=== PATIENT | male | born 1930 | race Caucasian/White ===

== ENCOUNTER 2017-09-01 19:46 | Inpatient (IN) | payer MEDICARE, BC ==
[2017-09-01] MEDS ORDERED: NS 0.9% 1000 ML* 1,000 ML IV ONE ×2 (20:11→20:14)
--- NOTE | 2017-09-01 20:37 | RAD ---
Indication: Weakness. Single frontal view of the chest performed at 2020 hours was reviewed. No prior study is available for comparison. No mediastinal shift is noted. Heart is of normal size and configuration. Lung moraes appear clear. Patient is status post transsternal thoracotomy. IMPRESSION: NO ACTIVE CARDIOPULMONARY DISEASE IS NOTED.
[2017-09-01 21:08] LABS: Hematocrit 42 % (42-52); Hemoglobin 13.6 g/dl (14.0-18.0); Mean Corpuscular HGB Conc 33 g/dl (31-36); Mean Corpuscular Hemoglobin 29 pg (27-31); Mean Corpuscular Volume 89 fL (80-94); Mean Platelet Volume 12 um3 (7.4-10.4); Red Blood Count 4.68 10^6/ul (4.0-5.4); Red Cell Distribution Width 16 % (10.5-15); White Blood Count 18.1 10^3/ul (3.5-10.8)
[2017-09-01 21:17] LABS: Add Diff/Slide Review? Slide Review Added; Comments Flag Yes
[2017-09-01 21:24] LABS: Albumin 4.2 g/dL (3.2-5.2); Calcium 9.9 mg/dL (8.6-10.3); EGFR African American 12.7 (>60); EGFR Non-African American 9.9 (>60); Globulin 4.6 g/dL (2-4); Magnesium 3.7 mg/dL (1.9-2.7); Total Bilirubin 0.4 mg/dL (0.2-1.0); Total Protein 8.8 g/dL (6.4-8.9)
[2017-09-01 21:28] LABS: Potassium 5.2 mmol/L (3.5-5.0); Troponin I 0.14 ng/mL (<0.04)
[2017-09-01 21:58] LABS: TSH (Thyroid Stimulating Horm) 0.83 mcIU/mL (0.34-5.60)
[2017-09-01] MEDS ORDERED: Ondansetron INJ* 2 MG/ML VIAL IV PRN (22:20)
[2017-09-01] MEDS ORDERED: Acetaminophen TAB* 325 MG PO PRN (22:20)
[2017-09-01 22:22] LABS: BUN/Creatinine Ratio 36.1 (8-20)
[2017-09-01] MEDS ORDERED: NS 0.45% 1000 ML BAG* 1,000 ML IV SCH (23:00)
[2017-09-01 23:38] LABS: Urine Bacteria Absent (Absent); Urine Bilirubin Negative (Negative); Urine Glucose Negative (Negative); Urine Nitrite Negative (Negative)
[2017-09-01 23:58] LABS: Calcium 8.7 mg/dL (8.6-10.3); EGFR African American 14.1 (>60); EGFR Non-African American 10.9 (>60); Potassium 4.8 mmol/L (3.5-5.0)
--- NOTE | 2017-09-02 00:01 | ED ---
Rob Mario Tiffany, scribchanel for Kobe Espinoza on 09/01/17 at 2020 . Complex/Multi-Sys Presentation - HPI Summary HPI Summary: This patient is an 87 year old M AISHWARYA CMCCHANEL accompanied by daughter and son-in- law with a chief complaint of general illness since one month ago, worse since today. Symptoms aggravated by nothing. Symptoms alleviated by nothing. The daughter delivered the HPI. The patient was referred to the ED today from his PCP. She reports decreased appetite. She denies fever. - History Of Current Complaint Time Seen by Provider: 09/01/17 19:57 Hx Obtained From: Family/Docent Coordinator - Daughter Onset/Duration: Lasting Weeks - 4 weeks, Still Present, Worse Since - Today Aggravating Factor(s): Nothing Alleviating Factor(s): Nothing Associated Signs And Symptoms: Positive: Other - Decreased appetite; NEGATIVE: fever - Allergies/Home Medications Allergies/Adverse Reactions: Allergies Allergy/AdvReac Type Severity Reaction Status Date / Time No Known Allergies Allergy Verified 09/01/17 20:08 Home Medications: Home Medications Alfuzosin HCl [Alfuzosin HCl ER] 10 mg PO DAILY 09/01/17 [History Confirmed ] Aspirin [Aspirin 81 MG TAB] 81 mg PO DAILY 09/01/17 [History Confirmed 09/01/17] Metoprolol Tartrate TAB* [Lopressor TAB*] 12.5 mg PO DAILY 09/01/17 [History Confirmed 09/01/17] PMH/Surg Hx/FS Hx/Imm Hx Previously Healthy: No GI History: Reports: Other GI Disorders - Hx of UTI Neurological History: Reports: Hx Dementia - Surgical History Surgery Procedure, Year, and Place: Triple bypass in 1979 and 1997, appendectomy in 0, stent in 1989 Infectious Disease History: Yes - Measles, mumps, rubella Infectious Disease History: Denies: Traveled Outside the [place] in Last 30 Days - Family History Known Family History: Positive: Cardiac Disease - Father had heart valve replaced, Other - Mother had bipolar disorder, no cancer - Social History Lives: With Family - With daughter and son-in-law Alcohol Use: Daily Alcohol Amount: 1/2 drink per day Hx Substance Use: No Substance Use Type: Reports: None Hx Tobacco Use: Yes Smoking Status (MU): Former Smoker - Quit at 48 y/o, used to smoke 3 PPD Review of Systems Positive: Other - General illness. Negative: Fever Positive: Other - Decreased appetite All Other Systems Reviewed And Are Negative: Yes Physical Exam - Summary Physical Exam Summary: Appearance: Well appearing, no pain distress Skin: warm, dry, reflects adequate perfusion Head/face: normal Eyes: EOMI, MAU ENT: dry mucous membranes Neck: supple, non-tender Respiratory: CTA, breath sounds present Cardiovascular: RRR, pulses symmetrical Abdomen: non-tender, soft Bowel: present Musculoskeletal: normal, strength/ROM intact Neuro: alert, confused Triage Information Reviewed: Yes Vital Signs On Initial Exam: Initial Vitals Temp Pulse Resp BP Pulse Ox 97.2 F 68 22 89/56 95 09/01/17 19:53 09/01/17 19:53 09/01/17 19:53 09/01/17 19:53 09/01/17 19:53 Vital Signs Reviewed: Yes Diagnostics - Vital Signs Vital Signs Temp Pulse Resp BP Pulse Ox 09/01/17 19:53 97.2 F 68 22 89/56 95 - Laboratory Lab Results: Lab Results 09/01/17 09/01/17 09/01/17 Range/Units 20:50 20:50 20:50 WBC 18.1 H (3.5-10.8) 10^3/ul RBC 4.68 (4.0-5.4) 10^6/ul Hgb 13.6 L (14.0-18.0) g/dl Hct 42 (42-52) % MCV 89 (80-94) fL MCH 29 (27-31) pg MCHC 33 (31-36) g/dl RDW 16 H (10.5-15) % Plt Count 159 (150-450) 10^3/ul MPV 12 H (7.4-10.4) um3 Neut % (Auto) 89.7 H (38-83) % Lymph % (Auto) 4.3 L (25-47) % [place] % (Auto) 5.8 (1-9) % Eos % (Auto) 0 (0-6) % Baso % (Auto) 0.2 (0-2) % Absolute Neuts (auto) 16.3 H (1.5-7.7) 10^3/ul Absolute Lymphs (auto) 0.8 L (1.0-4.8) 10^3/ul Absolute Monos (auto) 1.0 H (0-0.8) 10^3/ul Absolute Eos (auto) 0 (0-0.6) 10^3/ul Absolute Basos (auto) 0 (0-0.2) 10^3/ul Absolute Nucleated RBC 0 10^3/ul Nucleated RBC % 0 INR (Anticoag Therapy) 1.20 H (0.77-1.02) APTT 27.6 (26.0-36.3) seconds Sodium 161 H* (133-145) mmol/L Potassium 5.2 H (3.5-5.0) mmol/L Chloride 119 H (101-111) mmol/L Carbon Dioxide 25 (22-32) mmol/L Anion Gap 17 H (2-11) mmol/L BUN 198 H (6-24) mg/dL Creatinine 5.48 H (0.67-1.17) mg/dL Est GFR ( Amer) 12.7 (>60) Est GFR (Non-Af Amer) 9.9 (>60) BUN/Creatinine Ratio 36.1 H (8-20) Glucose 132 H (70-100) mg/dL Lactic Acid (0.5-2.0) mmol/L Calcium 9.9 (8.6-10.3) mg/dL Magnesium 3.7 H (1.9-2.7) mg/dL Total Bilirubin 0.40 (0.2-1.0) mg/dL AST 18 (13-39) U/L ALT 20 (7-52) U/L Alkaline Phosphatase 93 (34-104) U/L Troponin I 0.14 H* (<0.04) ng/mL Total Protein 8.8 (6.4-8.9) g/dL Albumin 4.2 (3.2-5.2) g/dL Globulin 4.6 H (2-4) g/dL Albumin/Globulin Ratio 0.9 L (1-3) TSH 0.83 (0.34-5.60) mcIU/mL 09/01/17 Range/Units 20:50 WBC (3.5-10.8) 10^3/ul RBC (4.0-5.4) 10^6/ul Hgb (14.0-18.0) g/dl Hct (42-52) % MCV (80-94) fL MCH (27-31) pg MCHC (31-36) g/dl RDW (10.5-15) % Plt Count (150-450) 10^3/ul MPV (7.4-10.4) um3 Neut % (Auto) (38-83) % Lymph % (Auto) (25-47) % [place] % (Auto) (1-9) % Eos % (Auto) (0-6) % Baso % (Auto) (0-2) % Absolute Neuts (auto) (1.5-7.7) 10^3/ul Absolute Lymphs (auto) (1.0-4.8) 10^3/ul Absolute Monos (auto) (0-0.8) 10^3/ul Absolute Eos (auto) (0-0.6) 10^3/ul Absolute Basos (auto) (0-0.2) 10^3/ul Absolute Nucleated RBC 10^3/ul Nucleated RBC % INR (Anticoag Therapy) (0.77-1.02) APTT (26.0-36.3) seconds Sodium (133-145) mmol/L Potassium (3.5-5.0) mmol/L Chloride (101-111) mmol/L Carbon Dioxide (22-32) mmol/L Anion Gap (2-11) mmol/L BUN (6-24) mg/dL Creatinine (0.67-1.17) mg/dL Est GFR ( Amer) (>60) Est GFR (Non-Af Amer) (>60) BUN/Creatinine Ratio (8-20) Glucose (70-100) mg/dL Lactic Acid 1.5 (0.5-2.0) mmol/L Calcium (8.6-10.3) mg/dL Magnesium (1.9-2.7) mg/dL Total Bilirubin (0.2-1.0) mg/dL AST (13-39) U/L ALT (7-52) U/L Alkaline Phosphatase (34-104) U/L Troponin I (<0.04) ng/mL Total Protein (6.4-8.9) g/dL Albumin (3.2-5.2) g/dL Globulin (2-4) g/dL Albumin/Globulin Ratio (1-3) TSH (0.34-5.60) mcIU/mL Result Diagrams: 09/01/17 20:50 09/01/17 23:25 Lab Statement: Any lab studies that have been ordered have been reviewed, and results considered in the medical decision making process. - Radiology CXR Radiology Interpretation Completed By: Radiologist - NO ACTIVE CARDIOPULMONARY DISEASE IS NOTED. ED physician has reviewed this radiology report. - EKG 20:24 Cardiac Rate: NL EKG Rhythm: Sinus Rhythm - 93 BPM EKG Interpretation: No acute changes Complex Multi-Symp Course/Dx Course Of Treatment: This patient is an 87 year old M [facility] accompanied by daughter and son-in-law with a chief complaint of general illness since one month ago, worse since today. The patient was referred to the ED today from his PCP. An EKG reveals sinus rhythm and no acute changes. CXR reveals, per radiologist, NO ACTIVE CARDIOPULMONARY DISEASE IS NOTED. Bloodwork/UA obtained. Patient will be admitted to the hospitalist. The patient is agreeable with this plan. - Diagnoses Differential Diagnoses/HQI/PQRI: Metabolic Abnormality, Sepsis, Urinary Tract Infection, Other - renal failure/hypernatremia Provider Diagnoses: Hypernatremia, Renal failure, Dehydration, Positive troponin, Dementia, Failure to thrive Discharge - Discharge Plan Condition: Fair Disposition: ADMITT[facility] TO [facility] The documentation as recorded by the Rob murdock Tiffany accurately reflects the service I personally performed and the decisions made by Alexis hernandez Emmanuel.
[2017-09-02] MEDS: Meropenem 500MG PREMIX(*) 500 MG/50 ML BAG IV SCH ×2 (00:09→22:46)
[2017-09-02 00:23] LABS: Troponin I 0.11 ng/mL (<0.04)
[2017-09-02 01:00] LABS: BUN/Creatinine Ratio 37.8 (8-20)
[2017-09-02 03:07] LABS: Calcium 8.5 mg/dL (8.6-10.3); EGFR African American 14.5 (>60); EGFR Non-African American 11.3 (>60); Potassium 4.6 mmol/L (3.5-5.0)
[2017-09-02 03:24] LABS: Troponin I 0.1 ng/mL (<0.04)
[2017-09-02 03:46] LABS: BUN/Creatinine Ratio 37.3 (8-20)
--- NOTE | 2017-09-02 04:44 | HP ---
CC: Dr. Clifton * HISTORY AND PHYSICAL: DATE OF ADMISSION: 09/01/17 PRIMARY CARE PROVIDER: Dr. Clifton. ATTENDING PHYSICIAN WHILE IN THE HOSPITAL: Dr. Rajiv Moseley * (report dictated by Karsten Blank NP). CHIEF COMPLAINT: 1. Increasing confusion. 2. Weakness. HISTORY OF PRESENT ILLNESS: I would like to preface the report by saying the patient has had significant dementia and has had some delirium and is really essentially nonverbal. He is really unable to contribute to the H and P. Family says that the last 2 to 3 days he has been nonverbal, has not been eating or drinking over the last week and really from Thanksgiving of this year he stopped taking his medications. He refused to take them. He has severe dementia. He was relocated up here with his daughter couple of months ago because he could no longer be at assisted living because he was found wandering at night naked in the parking lot there. The patient does carry again a history of BPH, hypertension, dementia, tremors, history of SC, and CAD. The daughter has noticed that he has not been eating and drinking, so she was trying to get established with PCP, which she finally got Dr. Clifton to see the patient through the [place]. They checked labs and they noticed that his BUN and creatinine and his sodium were significantly elevated, so they were concerned and they brought the patient in per the recommendations of Dr. Clifton. There has been no reports of fevers, chills, nausea, vomiting. No reports of shortness of breath or URI symptoms that have been reported by the family that have been observed or anything. When he got here to the ED, it was noted that his sodium was 161, his creatinine was 5. He had elevated white count and he had several lab abnormalities, so we were asked to evaluate for admission. PAST MEDICAL HISTORY: Significant for: 1. Dementia. 2. Hypertension. 3. BPH. 4. Tremors. 5. SC in the past. 6. CAD. PAST SURGICAL HISTORY: He has had CABG x2. He has had a cardiac catheterization with stent and he has had an appendectomy. HOME MEDICATIONS: According to the list provided: 1. Lopressor 12.5 mg daily. 2. Aspirin 81 mg daily. 3. Alfuzosin 10 mg p.o. daily. FAMILY HISTORY: The daughter says both his parents of old age. SOCIAL HISTORY: He is a former smoker. He does not drink alcohol. Surrogate decision maker is his daughter. REVIEW OF SYSTEMS: Unable to be obtained from the patient because he is nonverbal. PHYSICAL EXAMINATION GENERAL: At this time, Mr. Lucero is an 87-year-old male patient. He appears to be malnourished. He is sitting in the ED stretcher. He does not appear to be in acute distress. VITAL SIGNS: Blood pressure 89/56, pulse 92, respirations 22, O2 sat 95%, temperature 97.2. HEENT: Head: Atraumatic. Eyes: Sclerae are anicteric. Pupils are reactive to light. Throat: Oral mucosa appears to be moist. No oropharyngeal erythema. NECK: Supple. LUNGS: Clear to auscultation bilaterally. No wheezes, rales, or rhonchi. HEART: Sounds S1, S2. Regular rate and rhythm. No murmurs, rubs, or gallops. ABDOMEN: Soft, flat. There was tenderness in the suprapubic area. No CVA tenderness. EXTREMITIES: Pulses were 2+ throughout. He does move all 4 extremities. NEUROLOGIC: He is awake. He will not follow commands. He is nonverbal. He does not appear to be oriented to self, place, or time. He has no obvious gross focal deficits. SKIN: Intact. DIAGNOSTIC STUDIES/LAB DATA: WBC of 18.1, RBC of 4.68, his hemoglobin was 13.6 , hematocrit 42, his platelet count was 159. His INR was 1.20, his PTT was 27.6. His sodium was 161, his potassium was 5.2, chloride of 119, bicarb 25, BUN pending, his creatinine was 5.48, glucose 132, lactate 1.5, calcium 9.9, mag 3.7. Total bili 0.4, AST 18, ALT 20, alk phos 93. Troponin 0.14. Albumin of 4.2. His TSH was 0.83. He had a chest x-ray obtained today, which revealed no active cardiopulmonary disease. He had an EKG obtained today, showed a sinus rhythm rate of 93. No ST elevations or T-wave inversions. Old medical records were reviewed. ASSESSMENT AND PLAN: Mr. Lucero is an 87-year-old male patient with severe dementia, coming into the ED today with multiple lab abnormalities. He will be admitted under inpatient status for: 1. Hypernatremia. I suspect this is probably from dehydration. He has not eaten in the last week or drunk anything. My plan would be to go ahead and I did touch base with Dr. Chavez. He is obviously free water deficit, but he also does appear to be intravascularly depleted too. At this point, we are going to give him 2 L of normal saline upfront and LR at 200 an hour for 2 L, then half normal at 200 an hour. We will check BMPs every [address] him in the ICU and follow closely. 2. Acute renal failure. I do not have a previous creatinine, but I suspect this is pretty acute. We will get a FENa, get a CT of the abdomen and pelvis and make sure there is no hydronephrosis or obstructive uropathy. In addition to this, we will also get a urinalysis. While we expect this is probably all prerenal and the component of acute tubular necrosis, but we will hydrate him aggressively tonight to try to salvage the kidneys. 3. Leukocytosis. He certainly does have underlying infection somewhere, I am concerned for the urine, he did have ESBL in the past. We are getting the culture with Nicole now and I am going to go ahead and give him 1 dose of meropenem because of the ESBL in the past. We can continue to follow this. We will get blood cultures and check a flu swab as well. 4. Indeterminate troponin. This is probably demand ischemia from the severe dehydration. He is little hypotensive. We will trend these and we will follow. 5. Hypertension. We are holding his metoprolol. 6. Benign prostatic hypertrophy. We will continue his meds as prescribed and Rivera is being placed. 7. Dementia with acute delirium. Again, this is probably secondary to his severe metabolic derangements. We will try to correct these and we will reevaluate. 8. History of coronary artery disease. Continue with his aspirin therapy. 9. History of tremor. Supportive care. 10. DVT prophylaxis: We will place on heparin subcu. 11. Code status: He is a DNR. 12. Prognosis is poor, but the family did state that they would like to try to hydrate him for the next 2 to 3 days and see if he does turn around. If he does not, they will be interested in hospice. They have a MOLST with DNR/DNI. They are interested in pursuing hospice measures and hospice care if he qualifies. I did put a consult in. 13. Fluids, electrolytes, nutrition: He can have a regular diet. TIME SPENT: Time spent on admission was 60 minutes, greater than half the time was spent [id number] with the patient obtaining my history and physical, other half time was spent going over the plan of care with the patient and implementing plan of care. I did discuss the plan of care with my attending, Dr. Moseley, he is in agreement. KARSTEN BLANK, COMPUTER REPAIR TECHNICIAN [id number]/CPS #: [id number] ELVIRA
[2017-09-02] MEDS: Heparin VIAL(*) 5000 UNITS/ML VIAL (FIVE THOUSAND) SUBCUT SCH ×3 (06:47→22:46)
[2017-09-02 07:00] LABS: Hematocrit 32 % (42-52); Hemoglobin 10.4 g/dl (14.0-18.0); Mean Corpuscular HGB Conc 33 g/dl (31-36); Mean Corpuscular Hemoglobin 29 pg (27-31); Mean Corpuscular Volume 88 fL (80-94); Mean Platelet Volume 12 um3 (7.4-10.4); Red Blood Count 3.62 10^6/ul (4.0-5.4); Red Cell Distribution Width 16 % (10.5-15); White Blood Count 20.1 10^3/ul (3.5-10.8)
[2017-09-02 07:05] LABS: Comments Flag Yes
[2017-09-02 07:06] LABS: Add Diff/Slide Review? Slide Review Added
[2017-09-02 07:20] LABS: Calcium 8.6 mg/dL (8.6-10.3); EGFR African American 15.6 (>60); EGFR Non-African American 12.1 (>60); Potassium 4.5 mmol/L (3.5-5.0)
[2017-09-02 07:50] LABS: BUN/Creatinine Ratio 37.7 (8-20)
[2017-09-02] MEDS: NS 0.45% 1000 ML BAG* 1,000 ML IV SCH ×2 (08:05→13:07)
--- NOTE | 2017-09-02 08:11 | PN ---
Subjective Date of Service: 09/02/17 Interval History: Patient admitted last evening with dehydration, hypernatremia. He is able to answer a few questions this morning. Denies pain. Says "thank you." Family History: Unchanged from Admission Social History: Unchanged from Admission Past Medical History: Unchanged from Admission Objective Active Medications: Acetaminophen (Tylenol Tab*) 650 mg PO Q4H PRN PRN Reason: FEVER/PAIN Aspirin (Aspirin Ec Low Dose*) 81 mg PO DAILY [facility] Heparin Sodium (Porcine) (Heparin Vial(*)) 5,000 units SUBCUT Q8HR [facility] Last Admin: 09/02/17 06:47 Dose: 5,000 units Meropenem (Merrem 500mg Premix(*)) 500 mg in 50 mls @ 100 mls/hr IV Q24H [facility] Last Admin: 09/02/17 00:09 Dose: 100 mls/hr Lactated Ringer's (Lactated Ringers 1000 Ml Bag*) 1,000 mls @ 200 mls/hr IV Q5H [facility] Stop: 09/02/17 08:59 Last Admin: 09/02/17 05:32 Dose: 200 mls/hr Sodium Chloride (Ns 0.45% 1000 Ml Bag*) 1,000 mls @ 200 mls/hr IV Q5H [facility] Stop: 09/02/17 18:59 Last Admin: 09/02/17 08:05 Dose: 200 mls/hr Ondansetron HCl (Zofran Inj*) 4 mg IV Q6H PRN PRN Reason: NAUSEA Vital Signs - 8 hr 09/02/17 09/02/17 09/02/17 06:30 06:45 07:00 Temperature Pulse Rate 78 76 76 Respiratory 29 18 12 Rate Blood Pressure 103/57 101/55 104/50 (mmHg) O2 Sat by Pulse 99 97 100 Oximetry 09/02/17 09/02/17 09/02/17 07:01 07:17 07:31 Temperature Pulse Rate 71 72 78 Respiratory 8 21 19 Rate Blood Pressure 107/54 112/55 (mmHg) O2 Sat by Pulse 99 100 98 Oximetry 09/02/17 07:45 Temperature Pulse Rate 79 Respiratory 30 Rate Blood Pressure 104/51 (mmHg) O2 Sat by Pulse 97 Oximetry Oxygen Devices in Use Now: Nasal Cannula Appearance: sleeping, arouses to light touch, no distress Eyes: No Scleral Icterus Ears/Nose/Mouth/Throat: Clear Oropharnyx Neck: No Thyroid Enlargement, Masses Respiratory: Clear to Auscultation Cardiovascular: NL Sounds; No Murmurs; No JVD, RRR Abdominal: NL Sounds; No Tenderness; No Distention, No Hepatosplenomegaly Neurological: - - answers questions w/ vague answers Lines/Tubes/Other Access: Clean, Dry and Intact Peripheral IV Result Diagrams: 09/02/17 06:50 09/02/17 06:50 Additional Lab and Data: Laboratory Tests 09/01/17 09/01/17 09/01/17 20:50 20:50 22:50 Lactic Acid 1.5 Troponin I 0.14 H* Ur Random Creatinine 219.26 Ur Random Sodium 31 09/01/17 09/02/17 23:25 02:43 Lactic Acid Troponin I 0.11 H* 0.10 H* Ur Random Creatinine Ur Random Sodium Microbiology and Other Data: Microbiology 09/02/17 00:55 Nasal Screen MRSA (PCR)(JESSICA) - Final Nasal Mrsa Negative 09/01/17 23:25 Influenza Types A,B Antigen (JESSICA) - Final Nasal Specimen received for Influenza A/B Molecular testing Diagnostic Imaging: CT abdo/pelv complete, report pending Assess/Plan/Problems-Billing Assessment: 87 yo man w/ poor PO intake for 3-4 days, admitted w/ acute renal failure and severe hypernatremia. - Patient Problems (1) Hypernatremia Current Visit: Yes Status: Acute Priority: High Code(s): E87.0 - HYPEROSMOLALITY AND HYPERNATREMIA SNOMED Code(s): 02588888 Comment: -hypernatremia not responding to isotonic rehydration -will switch to 1/2 NS and monitor serum sodium closely (2) Acute kidney injury Current Visit: Yes Status: Acute Priority: Medium Code(s): N17.9 - ACUTE KIDNEY FAILURE, UNSPECIFIED SNOMED Code(s): 89202480 Comment: -creatinine has improved w/ 2.5 liters crystalloids overnight -CT abdo/pelv will demonstrate whether there is post-renal obstruction -suspect element of ATN -continue IV rehydration, 1/2 normal saline. (3) DVT prophylaxis Current Visit: Yes Status: Acute Priority: Low Code(s): UBE9375 - SNOMED Code(s): 204388246 Comment: - SCDs (4) Elevated troponin level Current Visit: Yes Status: Acute Priority: Medium Code(s): R74.8 - ABNORMAL LEVELS OF OTHER SERUM ENZYMES SNOMED Code(s): 342086898 Comment: -troponin is trending down, likely elevated by acute illness -can safely leave ICU and be followed on medical floor. Status and Disposition: continued inpatient stay due to severe hypernatremia
--- NOTE | 2017-09-02 08:58 | RAD ---
Indication: Pelvic pain, acute renal failure. CT of the abdomen and pelvis was performed without IV contrast. Coronal and sagittal reconstructed images were obtained. Lung bases demonstrate no pleural fluid, nodules or masses. There is suggestion of early infiltrate in the left base which may represent atelectasis or pneumonia. Heart is normal size without evidence pericardial effusion. Liver is normal in size. No focal lesions or intrahepatic ductal dilatation or gallbladder demonstrates calcified gallstones. No pericholecystic fluid or wall thickening is identified. The pancreas demonstrates no mass or duct dictation. The spleen is normal in size. No adrenal masses are noted. The kidneys demonstrates no hydronephrosis. There is aneurysmal dilatation of the inferior abdominal aorta measuring 4.5 x 5.4 cm. Common iliac arteries are unremarkable No dilated loops of bowel are noted. The colon is filled with stool. There is a Rivera catheter is distended urinary bladder and the bladder is filled with air. IMPRESSION: Abdominal aortic aneurysm as described above. Patchy infiltrate in the left base with no pleural fluid.
[2017-09-02] MEDS: Aspirin EC Low Dose* 81 MG TAB.EC PO SCH (09:50)
[2017-09-02] MEDS ORDERED: NS 0.9% 500 ML* 500 ML IV ONE (13:20)
[2017-09-02 13:56] LABS: Calcium 8.4 mg/dL (8.6-10.3); EGFR African American 17.8 (>60); EGFR Non-African American 13.8 (>60); Magnesium 2.8 mg/dL (1.9-2.7); Potassium 4.5 mmol/L (3.5-5.0)
[2017-09-02 14:20] LABS: BUN/Creatinine Ratio 41.7 (8-20)
[2017-09-02 16:06] LABS: EGFR African American 19.2 (>60); EGFR Non-African American 14.9 (>60); Potassium 4.4 mmol/L (3.5-5.0)
[2017-09-02 16:47] LABS: BUN/Creatinine Ratio 41.9 (8-20)
--- NOTE | 2017-09-02 17:04 | RAD ---
Indication: Acute renal failure. Real-time sonography of the kidneys was performed. The right kidney measures 10.5 x 4.7 x 4.7 cm. The left kidney measures 10.1 x 4.5 x 4.3 cm. No hydronephrosis is noted in either kidney. IMPRESSION: Unremarkable renal ultrasound.
[2017-09-02] MEDS: Morphine INJ* 2 MG/ML 1 ML SYRINGE (TWO MG - NEW SYRINGE VERSION) IV PRN ×2 (17:43→22:59)
[2017-09-02 19:16] LABS: Calcium 8.1 mg/dL (8.6-10.3); EGFR African American 21.3 (>60); EGFR Non-African American 16.6 (>60); Potassium 4.2 mmol/L (3.5-5.0)
[2017-09-02] MEDS: D5W 1/2 NS 1000 ML BAG* 1,000 ML IV SCH (19:26)
[2017-09-02 22:57] LABS: Calcium 7.9 mg/dL (8.6-10.3); EGFR African American 21.3 (>60); EGFR Non-African American 16.6 (>60); Potassium 3.9 mmol/L (3.5-5.0)
[2017-09-03] MEDS: D5W 1/2 NS 1000 ML BAG* 1,000 ML IV SCH ×4 (01:23→22:22)
[2017-09-03 03:31] LABS: BUN/Creatinine Ratio 44.2 (8-20); Calcium 7.7 mg/dL (8.6-10.3); EGFR African American 26.1 (>60); EGFR Non-African American 20.3 (>60); Potassium 3.5 mmol/L (3.5-5.0)
[2017-09-03] MEDS: Heparin VIAL(*) 5000 UNITS/ML VIAL (FIVE THOUSAND) SUBCUT SCH ×2 (05:09→14:07)
[2017-09-03 05:49] LABS: BUN/Creatinine Ratio 39.3 (8-20); Calcium 7.8 mg/dL (8.6-10.3); EGFR African American 24.7 (>60); EGFR Non-African American 19.2 (>60); Magnesium 2.3 mg/dL (1.9-2.7); Potassium 3.6 mmol/L (3.5-5.0)
[2017-09-03] MEDS: Aspirin EC Low Dose* 81 MG TAB.EC PO SCH (08:17)
[2017-09-03] MEDS ORDERED: NS 0.9% 500 ML* 500 ML IV ONE (11:43)
--- NOTE | 2017-09-03 14:18 | PN ---
Subjective Date of Service: 09/03/17 Interval History: Patient able to answer some questions. Denies thirst, denies pain. Family History: Unchanged from Admission Social History: Unchanged from Admission Past Medical History: Unchanged from Admission Objective Active Medications: Acetaminophen (Tylenol Tab*) 650 mg PO Q4H PRN PRN Reason: FEVER/PAIN Aspirin (Aspirin Ec Low Dose*) 81 mg PO DAILY [facility] Last Admin: 09/03/17 08:17 Dose: 81 mg Dextrose/Sodium Chloride (D5w 1/2 Ns 1000 Ml Bag*) 1,000 mls @ 125 mls/hr IV PER RATE [facility] Morphine Sulfate (Morphine Inj (Syringe)*) 2 mg IV Q2H PRN PRN Reason: PAIN Last Admin: 09/02/17 22:59 Dose: 2 mg Ondansetron HCl (Zofran Inj*) 4 mg IV Q6H PRN PRN Reason: NAUSEA Vital Signs - 8 hr 09/03/17 07:35 Temperature 36.5 C Pulse Rate 68 Respiratory 18 Rate Blood Pressure 98/46 (mmHg) O2 Sat by Pulse 95 Oximetry Oxygen Devices in Use Now: None Appearance: somnolent, no distress Respiratory: Clear to Auscultation Cardiovascular: NL Sounds; No Murmurs; No JVD Lines/Tubes/Other Access: Clean, Dry and Intact Peripheral IV Result Diagrams: 09/02/17 06:50 09/03/17 05:05 Diagnostic Imaging: CT abdo/pelv: 4.5 x 5.5 cm AAA, basilar infiltrate Assess/Plan/Problems-Billing Assessment: 87 yo man w/ poor PO intake for 3-4 days, admitted w/ acute renal failure and severe hypernatremia. - Patient Problems (1) Hypernatremia Current Visit: Yes Status: Acute Priority: High Code(s): E87.0 - HYPEROSMOLALITY AND HYPERNATREMIA SNOMED Code(s): 00143842 Comment: -hypernatremia now responding to D51/2NS for both free water deficit and rehydration -sodium improving, will monitor serum sodium daily (2) Acute kidney injury Current Visit: Yes Status: Acute Priority: Medium Code(s): N17.9 - ACUTE KIDNEY FAILURE, UNSPECIFIED SNOMED Code(s): 29611578 Comment: - creatinine has improved w/ volume resucitation - renal U/S and CT show no obstruction (3) DVT prophylaxis Current Visit: Yes Status: Acute Priority: Low Code(s): ZMS0805 - SNOMED Code(s): 016190876 Comment: - not indicated w/ hospice plan (4) DNR (do not resuscitate) discussion Current Visit: Yes Status: Acute Priority: Medium Code(s): Z71.89 - OTHER SPECIFIED COUNSELING SNOMED Code(s): 469942393 Comment: -dicussed situation with daughter who is HCP -He has not been eating for a week, and there is no sign of improvement -She elected to pursue hospice consult tomorrow, keep him comfortable and hydrated for now Status and Disposition: Plan for discharge to hospice residence or SNF tomorrow, as daughter reports she and cannot care for him a home with this level of illness.
[2017-09-03] MEDS: Morphine INJ* 2 MG/ML 1 ML SYRINGE (TWO MG - NEW SYRINGE VERSION) IV PRN (19:49)
[2017-09-04 04:38] LABS: Hematocrit 24 % (42-52); Hemoglobin 8.2 g/dl (14.0-18.0); Mean Corpuscular HGB Conc 34 g/dl (31-36); Mean Corpuscular Hemoglobin 29 pg (27-31); Mean Corpuscular Volume 86 fL (80-94); Mean Platelet Volume 11 um3 (7.4-10.4); Red Blood Count 2.82 10^6/ul (4.0-5.4); Red Cell Distribution Width 15 % (10.5-15); White Blood Count 8.8 10^3/ul (3.5-10.8)
[2017-09-04 04:39] LABS: Add Diff/Slide Review? Slide Review Added; Comments Flag Yes
[2017-09-04 04:47] LABS: BUN/Creatinine Ratio 36.5 (8-20); Calcium 7.5 mg/dL (8.6-10.3); EGFR African American 36.6 (>60); EGFR Non-African American 28.5 (>60); Potassium 3.4 mmol/L (3.5-5.0)
[2017-09-04] MEDS: D5W 1/2 NS 1000 ML BAG* 1,000 ML IV SCH ×3 (06:14→22:21)
[2017-09-04] MEDS: Aspirin EC Low Dose* 81 MG TAB.EC PO SCH (07:41)
--- NOTE | 2017-09-04 10:05 | PN ---
Subjective Date of Service: 09/04/17 Interval History: Patient seen and examined at bedside. Patient reports continued lack of appetite. Denies pain or discomfort at this time. Family History: Unchanged from Admission Social History: Unchanged from Admission Past Medical History: Unchanged from Admission Objective Active Medications: Acetaminophen (Tylenol Tab*) 650 mg PO Q4H PRN Aspirin (Aspirin Ec Low Dose*) 81 mg PO DAILY JOSE LUIS Dextrose/Sodium Chloride (D5w 1/2 Ns 1000 Ml Bag*) 1,000 mls @ 125 mls/hr IV PER RATE JOSE LUIS Morphine Sulfate (Morphine Inj (Syringe)*) 2 mg IV Q2H PRN Ondansetron HCl (Zofran Inj*) 4 mg IV Q6H PRN Vital Signs Temp Pulse Resp BP Pulse Ox 98.3 F 75 14 101/48 96 09/04/17 07:30 09/04/17 07:30 09/04/17 08:37 09/04/17 07:30 09/04/17 07:30 Oxygen Devices in Use Now: None Appearance: laying up in bed, NAD Eyes: No Scleral Icterus, PERRLA Neck: NL Appearance and Movements; NL JVP Respiratory: Symmetrical Chest Expansion and Respiratory Effort, Clear to Auscultation Cardiovascular: NL Sounds; No Murmurs; No JVD Abdominal: NL Sounds; No Tenderness; No Distention Skin: No Rash or Ulcers Neurological: NL Muscle Strength and Tone, - - AO to self and place Lines/Tubes/Other Access: Clean, Dry and Intact Peripheral IV Nutrition: Taking PO's Result Diagrams: 09/04/17 04:11 09/04/17 04:11 Additional Lab and Data: . Microbiology and Other Data: . Diagnostic Imaging: . Assess/Plan/Problems-Billing 87 yo man w/ poor PO intake for 3-4 days, admitted w/ acute renal failure and severe hypernatremia. - Patient Problems (1) Hypernatremia Comment: Sodium improving with D5 1/2 NS. Slowly correcting free water deficit and dehydration. Continue to monitor serum sodium. (2) Acute kidney injury Comment: Cr continues to improve with volume resuscitation. No evidence of obstruction on Ct or renal ultrasound. (3) Elevated troponin level Comment: Trending down. Suspect secondary to demand ischemia. No further work- up indicated with plan for hospice. (4) DVT prophylaxis Comment: Not indicated with plan for hospice. (5) DNR (do not resuscitate) discussion Comment: Family has elected for hospice consult. No sign of improvement with PO intake. Status and Disposition: Inpatient for severe hyponatremia. Plan for discharge to hospice residence or SNF when bed available, as daughter reports she and cannot care for him a home with this level of illness.
--- NOTE | 2017-09-04 10:44 | CONSULT ---
Palliative / Hospice Consult Ordering Provider: Karsten Blank - Subjective Code Status: DNR Advance Directives Location: In Chart MOLST Part A Completed: Yes MOLST Part E Completed:: Yes HCP Completed: Yes - Daughter Anju Lucero - History or Present Illness History or Present Illness: This 87 year old man had been living in [place], [place] in assisted living until the end of this past summer, when he moved to live with his daughter here. Over the summer, he had been hospitalized 6 times for UTIs. He apparently , according to his daughter, had no dementia until this past summer, but has had a steep decline since onset. He is now minimally verbal, incontinent, and requires total care and a two person assist for transfers. He weighed 125 pounds at the end of April. After Thanksgiving he began refusing his meds, and stopped eating and drinking adequately. Four days ago, he refused to get out of bed, and labs from his PCP revealed severe dehydration with ARF (creatinine of 5 ) and hypernatremia (Na 161). He was admitted with a plan to r/o urosepsis and rehydrate, but he has not bounced back. He is still taking almost nothing p.o., and despite rehydration with improvement in his labs (BUN 29 and Creatinine 2.9) , he still has renal compromise with an eGFR under 30. His daughter requests no more intervention and wants hospice services and comfort measures only. Lab Values: Abnormal Lab Results 09/04/17 09/04/17 04:11 04:11 WBC 8.8 RBC 2.82 L Hgb 8.2 L Hct 24 L MCV 86 MCH 29 MCHC 34 RDW 15 Plt Count 75 L MPV 11 H Neut % (Auto) 73.3 Lymph % (Auto) 16.4 L [place] % (Auto) 9.3 H Eos % (Auto) 0.8 Baso % (Auto) 0.2 Absolute Neuts (auto) 6.5 Absolute Lymphs (auto) 1.4 Absolute Monos (auto) 0.8 Absolute Eos (auto) 0.1 Absolute Basos (auto) 0 Absolute Nucleated RBC 0 Nucleated RBC % 0 Hem Pathologist Commnt Sodium 149 H Potassium 3.4 L Chloride 120 H Carbon Dioxide 24 Anion Gap 5 BUN 80 H Creatinine 2.19 H Est GFR ( Amer) 36.6 Est GFR (Non-Af Amer) 28.5 BUN/Creatinine Ratio 36.5 H Glucose 121 H Calcium 7.5 L Laboratory Last Values WBC 8.8 10^3/ul (3.5-10.8) 09/04/17 04:11 RBC 2.82 10^6/ul (4.0-5.4) L 09/04/17 04:11 Hgb 8.2 g/dl (14.0-18.0) L 09/04/17 04:11 Hct 24 % (42-52) L 09/04/17 04:11 MCV 86 fL (80-94) 09/04/17 04:11 MCH 29 pg (27-31) 09/04/17 04:11 MCHC 34 g/dl (31-36) 09/04/17 04:11 RDW 15 % (10.5-15) 09/04/17 04:11 Plt Count 75 10^3/ul (150-450) L 09/04/17 04:11 MPV 11 um3 (7.4-10.4) H 09/04/17 04:11 Neut % (Auto) 73.3 % (38-83) 09/04/17 04:11 Lymph % (Auto) 16.4 % (25-47) L 09/04/17 04:11 [place] % (Auto) 9.3 % (1-9) H 09/04/17 04:11 Eos % (Auto) 0.8 % (0-6) 09/04/17 04:11 Baso % (Auto) 0.2 % (0-2) 09/04/17 04:11 Absolute Neuts (auto) 6.5 10^3/ul (1.5-7.7) 09/04/17 04:11 Absolute Lymphs (auto) 1.4 10^3/ul (1.0-4.8) 09/04/17 04:11 Absolute Monos (auto) 0.8 10^3/ul (0-0.8) 09/04/17 04:11 Absolute Eos (auto) 0.1 10^3/ul (0-0.6) 09/04/17 04:11 Absolute Basos (auto) 0 10^3/ul (0-0.2) 09/04/17 04:11 Absolute Nucleated RBC 0 10^3/ul 09/04/17 04:11 Nucleated RBC % 0 09/04/17 04:11 Hem Pathologist Commnt 09/04/17 04:11 INR (Anticoag Therapy) 1.20 (0.77-1.02) H 09/01/17 20:50 APTT 27.6 seconds (26.0-36.3) 09/01/17 20:50 Sodium 149 mmol/L (133-145) H 09/04/17 04:11 Potassium 3.4 mmol/L (3.5-5.0) L 09/04/17 04:11 Chloride 120 mmol/L (101-111) H 09/04/17 04:11 Carbon Dioxide 24 mmol/L (22-32) 09/04/17 04:11 Anion Gap 5 mmol/L (2-11) 09/04/17 04:11 BUN 80 mg/dL (6-24) H 09/04/17 04:11 Creatinine 2.19 mg/dL (0.67-1.17) H 09/04/17 04:11 Est GFR ( Amer) 36.6 (>60) 09/04/17 04:11 Est GFR (Non-Af Amer) 28.5 (>60) 09/04/17 04:11 BUN/Creatinine Ratio 36.5 (8-20) H 09/04/17 04:11 Glucose 121 mg/dL (70-100) H 09/04/17 04:11 Lactic Acid 1.5 mmol/L (0.5-2.0) 09/01/17 20:50 Calcium 7.5 mg/dL (8.6-10.3) L 09/04/17 04:11 Magnesium 2.3 mg/dL (1.9-2.7) 09/03/17 05:05 Total Bilirubin 0.40 mg/dL (0.2-1.0) 09/01/17 20:50 AST 18 U/L (13-39) 09/01/17 20:50 ALT 20 U/L (7-52) 09/01/17 20:50 Alkaline Phosphatase 93 U/L (34-104) 09/01/17 20:50 Troponin I 0.10 ng/mL (<0.04) H* 09/02/17 02:43 Total Protein 8.8 g/dL (6.4-8.9) 09/01/17 20:50 Albumin 4.2 g/dL (3.2-5.2) 09/01/17 20:50 Globulin 4.6 g/dL (2-4) H 09/01/17 20:50 Albumin/Globulin Ratio 0.9 (1-3) L 09/01/17 20:50 TSH 0.83 mcIU/mL (0.34-5.60) 09/01/17 20:50 Urine Color Renea 09/01/17 22:50 Urine Appearance Cloudy 09/01/17 22:50 Urine pH 5.0 (5-9) 09/01/17 22:50 Ur Specific [place] 1.018 (1.010-1.030) 09/01/17 22:50 Urine Protein Negative (Negative) 09/01/17 22:50 Urine Ketones Negative (Negative) 09/01/17 22:50 Urine Blood 1+ (Negative) H 09/01/17 22:50 Urine Nitrate Negative (Negative) 09/01/17 22:50 Urine Bilirubin Negative (Negative) 09/01/17 22:50 Urine Urobilinogen Negative (Negative) 09/01/17 22:50 Ur Leukocyte Esterase Negative (Negative) 09/01/17 22:50 Urine WBC (Auto) Absent (Absent) 09/01/17 22:50 Urine RBC (Auto) 1+(3-5/hpf) (Absent) H 09/01/17 22:50 Ur Squamous Epith Cells Present (Absent) H 09/01/17 22:50 Urine Bacteria Absent (Absent) 09/01/17 22:50 Hyaline Casts Present (Absent) H 09/01/17 22:50 Ur Random Creatinine 219.26 mg/dL 09/01/17 22:50 Ur Random Sodium 31 mmol/L 09/01/17 22:50 Urine Glucose Negative (Negative) 09/01/17 22:50 Influenza A (Rapid) Negative (Negative) 09/01/17 23:38 Influenza B (Rapid) Negative (Negative) 09/01/17 23:38 - Objective Active Medications: Acetaminophen (Tylenol Tab*) 650 mg PO Q4H PRN PRN Reason: FEVER/PAIN Aspirin (Aspirin Ec Low Dose*) 81 mg PO DAILY JOSE LUIS Last Admin: 09/04/17 07:41 Dose: 81 mg Dextrose/Sodium Chloride (D5w 1/2 Ns 1000 Ml Bag*) 1,000 mls @ 125 mls/hr IV PER RATE JOSE LUIS Last Admin: 09/04/17 06:14 Dose: 125 mls/hr Morphine Sulfate (Morphine Inj (Syringe)*) 2 mg IV Q2H PRN PRN Reason: PAIN Last Admin: 09/03/17 19:49 Dose: 2 mg Ondansetron HCl (Zofran Inj*) 4 mg IV Q6H PRN PRN Reason: NAUSEA Vital Signs: Vital Signs: Temp Pulse Resp BP Pulse Ox 98.3 F 75 14 101/48 96 09/04/17 07:30 09/04/17 07:30 09/04/17 08:37 09/04/17 07:30 09/04/17 07:30 Patient Weight: Weight 110 lb 7.225 oz Intake and Output: Intake & Output 09/02/17 09/03/17 09/04/17 09/05/17 06:59 06:59 06:59 06:59 Intake Total 2545 5431 5307 0 Output Total 200 1700 3125 Balance 2345 3731 2182 0 Weight 110 lb 7.225 oz Intake: IV Fluids 2490 5421 4867 D5W 1/2 NS 1973 2940 LR 990 521 Meropenem 50 NS 500 NS (0.45%) 2877 1927 IVPB 55 10 Meropenem 55 NS 10 Oral 0 440 0 Output: Urine 1000 Rivera 200 1700 2125 Other: # Bowel Movements 0 0 Estimated Stool Amount Large ADLs: Meal Record Start: 09/02/17 09: 58 Freq: DAILY@0900,1400,1800 Status: Active Protocol: Created 09/02/17 09:58 [id number] (Rec: 09/02/17 09:58 [id number] ICU-C25) Document 09/02/17 14:00 [id number] (Rec: 09/02/17 14:27 [id number] MED-C09) Document 09/02/17 18:00 [id number] (Rec: 09/02/17 18:13 [id number] MED-C04) Document 09/03/17 09:00 [id number] (Rec: 09/03/17 10:23 [id number] MED-C09) Document 09/03/17 14:00 [id number] (Rec: 09/03/17 14:22 [id number] MED-C11) Document 09/03/17 18:00 [id number] (Rec: 09/03/17 18:27 [id number] MED-C02) Document 09/04/17 08:55 [id number] (Rec: 09/04/17 08:55 [id number] MED-C09) Intake and Output Start: 09/01/17 23: 36 Freq: 06,14,22 Status: Complete Protocol: Document 09/02/17 06:00 [id number] (Rec: 09/02/17 06:48 [id number] ICU-M10) Intake and Output Start: 09/02/17 09: 58 Freq: DAILY@0600,1400,2200 Status: Active Protocol: Created 09/02/17 09:58 [id number] (Rec: 09/02/17 09:58 [id number] ICU-C25) Document 09/02/17 14:00 [id number] (Rec: 09/02/17 14:27 [id number] MED-C09) Document 09/02/17 22:00 [id number] (Rec: 09/02/17 22:51 [id number] MED-C09) Document 09/03/17 05:15 [id number] (Rec: 09/03/17 05:15 [id number] MED-M02) Document 09/03/17 05:49 [id number] (Rec: 09/03/17 05:51 [id number] MED-C26) Document 09/03/17 14:00 [id number] (Rec: 09/03/17 14:22 [id number] MED-C11) Document 09/03/17 22:00 [id number] (Rec: 09/03/17 22:02 [id number] MED-C02) Document 09/04/17 06:00 [id number] (Rec: 09/04/17 06:49 [id number] MEDL-C01) General Impression: 87 year old man, sleeping but weakly responsive. Asks for a sip of water and aspirates it immediately. Head: Symmetrical Eyes: No Scleral Icterus, PERRLA Ears/Nose/Mouth/Throat: Clear Oropharnyx Neck: NL Appearance and Movements; NL JVP Cardiovascular: NL Sounds; No Murmurs; No JVD Respiratory: Symmetrical Chest Expansion and Respiratory Effort Abdominal: NL Sounds; No Tenderness; No Distention Neurological: NL Muscle Strength and Tone, - - AO to self and place - Assessment Assessment: This 87 year old has had significant weight loss with rapidly advancing dementia and now is becoming unstable with hypernatremia and renal compromise on the basis of his poor po intake. He seems to be aspirating. He has lost 15 pounds since the end of summer, which is well over 10% of his body mass. He isappropriate for hospice services on the basis of dementia and weight loss. We will seek placement in a SNF and will sign him onto hospice servics when he arrives there. Thank you for asking us to be involved. - Plan Consult Plan (MU): Hospice - Time On Unit Date of Evaluation: 09/04/17 Hospice Consult Time in: 10:15 Hospice Consult Time Out: 11:00 Hospice Consult Time Total: 45 > 50% of Time Spend In Counseling or Coordinating Care: Yes
[2017-09-04 12:03] VITALS: BP 89/43
[2017-09-04] MEDS ORDERED: Morphine ORAL CONCENTRATE* 5 MG/0.25 ML ORAL.SYRIN PO PRN (14:15)
[2017-09-04] MEDS ORDERED: LORazepam TAB(*) 1 MG PO PRN (14:15)
[2017-09-04] MEDS ORDERED: Ondansetron ODT TAB* 4 MG SL PRN (14:15)
[2017-09-04] MEDS ORDERED: D5W 1/2 NS 1000 ML BAG* 1,000 ML IV SCH (15:00)
[2017-09-04] MEDS ORDERED: D5W 1/2 NS 1000 ML BAG* 1,000 ML IV ONE (15:00)
--- NOTE | 2017-09-05 04:47 | DS ---
CC: Dr. Clifton; Dr. Choi * DISCHARGE SUMMARY: DATE OF ADMISSION: 09/01/17 DATE OF EXPECTED DISCHARGE: 09/05/17 PRIMARY CARE PHYSICIAN: Dr. Clifton. ATTENDING PHYSICIAN: Dr. Gabi Silva * (report dictated by Mary Begum NP). CONSULTATIONS WHILE IN THE HOSPITAL: Dr. Laurie Choi. PRIMARY DIAGNOSES: 1. Severe hyponatremia. 2. Dehydration. 3. Acute renal failure. 4. Indeterminate troponin. 5. Dementia with acute delirium. SECONDARY DIAGNOSES: 1. Coronary artery disease 2. Benign prostatic hyperplasia. 3. Hypertension. STUDIES WHILE IN THE HOSPITAL: 1. Renal ultrasound, 09/02/17: Unremarkable renal ultrasound. 2. CT scan of the abdomen and pelvis without contrast: Abdominal aortic aneurysm measuring 4.5 x 5.4 cm, patchy infiltrate in the left base with no pleural effusion. MEDICATIONS AT THE TIME OF DISCHARGE: New medications: 1. Tylenol 650 mg oral every 4 hours. 2. Ativan 1 mg every 8 hours as needed. 3. Morphine oral concentrate 5 mg oral every 2 hours as needed for pain or dyspnea. 4. Zofran 4 mg oral every 8 hours as needed for nausea. Discontinue: 1. Metoprolol. 2. Aspirin. 3. Alfuzosin. HISTORY OF PRESENT ILLNESS AND HOSPITAL COURSE: Mr. Lucero is an 87-year- old male with history significant for dementia, hypertension, BPH, tremors, who was brought to the emergency room on 09/01/17, as he was nonverbal. The patient had not been eating and drinking over the last week. The patient also stopped taking his medications around . In the emergency department , the patient was found to be severely hyponatremic with a sodium level of 161. In addition, the patient's creatinine was found to be elevated at 5.4. Additionally, the patient was found to have an indeterminate troponin of 0.11. The patient was admitted to the intensive care unit for further therapy. The patient was placed on IV fluids. Once the fluids were changed to D5 half normal , the patient's labs began to improve. By 09/04/17, the patient's sodium have come down to 149, his creatinine had improved to 2.1. With this improvement, the patient's mental status did improve and he was able to have simple conversations with family. Despite rehydration, the patient's oral intake has not improved. Consultation was obtained from Palliative Care, please refer to their full notes for detail. Due to the patient's weight loss and poor oral intake that has been going on for the past couple of months, they opted for no further intervention and for the patient to start hospice services with comfort measures only. Dr. Choi stated that the patient is appropriate for hospice services based on the dementia and weight loss and a bed has been obtained at [facility] for the patient to have hospice services there starting tomorrow 09/05/17, the patient will be stable to be transferred there. At the request of the daughter, she would like IV fluids to continue until he is discharged as he is currently awake enough up to have conversations with his 7 children. DISCHARGE PLAN: The patient was discharged on a comfort diet. The patient will have his Rivera removed prior to discharge. The patient will be followed by hospice services while he is at [facility]. I have reviewed all of this with the patient's family and they are agreeable with the discharge tomorrow. This is a summarized report of the complex medical history and hospital stay. For more details, please see the entire medical record. TIME SPENT: Time for this discharge was 60 minutes, and 35 minutes was spent with the patient's daughter and son-in-law discussing hospice plans at [facility]. MARY BEGUM NP [id number]/CPS #: [id number] ELVIRA
[2017-09-05] MEDS: D5W 1/2 NS 1000 ML BAG* 1,000 ML IV SCH (06:21)
[2017-09-05] MEDS: Aspirin EC Low Dose* 81 MG TAB.EC PO SCH (07:26)
== END 2017-09-05 11:25 | DRG 683 ==
LOC: ED 19:46 → ICU 22:16 → MED 09-02 12:48
PROVIDERS: ADMIT Hospitalist; ATTEND Internal Medicine
DX: N17.9 Acute kidney failure, unspecified (principal); E87.0 Hyperosmolality and hypernatremia; F05 Delirium due to known physiological condition; E86.0 Dehydration; F03.90 Unspecified dementia, unspecified severity, without behavioral disturbance, psychotic disturbance, mood disturbance, and anxiety; I10 Essential (primary) hypertension; I25.10 Atherosclerotic heart disease of native coronary artery without angina pectoris; N40.0 Benign prostatic hyperplasia without lower urinary tract symptoms; R25.1 Tremor, unspecified; Z66 Do not resuscitate; I71.4 Abdominal aortic aneurysm, without rupture; R74.8 Abnormal levels of other serum enzymes; Z87.891 Personal history of nicotine dependence; Z81.8 Family history of other mental and behavioral disorders; Z82.49 Family history of ischemic heart disease and other diseases of the circulatory system; Z72.89 Other problems related to lifestyle; I25.2 Old myocardial infarction; Z95.5 Presence of coronary angioplasty implant and graft; Z95.1 Presence of aortocoronary bypass graft; Z87.440 Personal history of urinary (tract) infections
CPT/HCPCS: 36415; 71010; 74176; 76775; 80048; 80053; 81003; 81015; 82570; 83605; 83735; 84300; 84443; 84484; 85025; 85060; 85610; 85730; 87040; 87086; 87502; 87641; 93005; 94760; A9270-GY; J1644; J2270